=== PATIENT | female | born 1965 | race Caucasian/White ===

== ENCOUNTER 2017-07-26 15:08 | Emergency (ER) | payer OTHER ==
[~2017-07-26] VITALS: Ht 149.9 cm; Wt 78.0 kg
[2017-07-26 15:12] VITALS: TEMP 37.2; Ht 149.9 cm; Wt 78.0 kg
[2017-07-26] MEDS ORDERED: LISI-461 PO (16:04)
[2017-07-26] MEDS ORDERED: TRAM-10 PO (16:04)
--- NOTE | 2017-07-26 16:10 | EMERGENCY ROOM VISIT NOTE ---
ED Visit Note First contact with patient: 15:17 CHIEF COMPLAINT: Body Fluid exposure HPI: This 52-year-old female presents to the Emergency Department ambulatory for evaluation of a body fluid exposure which occurred at work just prior to arrival. 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 She was seen by [facility] and started on HIV postexposure prophylaxis already. The wound was cleansed. There is no active bleeding. They deny numbness, tingling, or loss of motion. Source patient is known. History of the source patient is not known at this time, however they did agree to testing. She has had hepatitis B vaccination. Her tetanus status is up-to- date. ALLERGIES: No known drug allergies MEDICATIONS: Zestril, Ultram PMH: No significant past medical history. SOCIAL HISTORY: The patient lives locally with her . Nonsmoker, admits to occasional alcohol use. Physical Exam: VITALS: Nursing notes reviewed and vitals are stable. GENERAL: This is a 52-year-old female, in no acute distress, well developed, well nourished. SKIN: There is a 1 cm non-gaping laceration just proximal to the fingernail of the right fifth finger. There is no active bleeding. Capillary refill is 2+. MUSCULOSKELETAL: Patient has full active range of motion of the finger. Normal strength. NEURO: Gross sensation is intact across the finger. ED COURSE: I examined the patient. Option of HIV, hepatitis C, and hepatitis B testing was discussed with the patient. The risks, benefits, purpose, and limitations of the tests were explained to the patient and all of their questions were answered. They elected to proceed. I did perform pretest counseling and the appropriate consent forms were signed. Patient was given information on prevention of exposure and transmission as well as hospital confidentiality. The patient's blood was drawn. The patient was already started on HIV postexposure prophylaxis and will continue this until the source patient has had testing completed. I did fill out paperwork for the patient. She will follow-up with [facility]. She verbalized understanding of my assessment and treatment plan and was discharged home in good condition. Medication reconciliation: I attest that I have personally reviewed the patient 's current medication list. Blood Pressure Screening: Patient was found to have a slightly elevated blood pressure due to circumstances. I do not believe that the patient requires hypertension monitoring. Impression: Body fluid exposure Plan: Follow up with employee health for further evaluation, treatment, and test results. Current/Historical Medications Scheduled Lisinopril (Zestril), 10 MG PO DAILY Scheduled PRN Tramadol (Ultram), 50 MG PO UD PRN for Pain Allergies Coded Allergies: No Known Allergies (Unverified , 07/26/17) Vital Signs Date Time Temp Pulse Resp B/P (MAP) Pulse Ox O2 Delivery O2 Flow Rate FiO2 07/26/17 16:22 74 16 142/78 98 07/26/17 15:12 37.2 82 16 155/95 98 Room Air Laboratory Results Test 07/26/17 15:51 Hepatitis B Surface Antigen NEG (NEG) Hepatitis B Surface Antibody POS Hepatitis C Antibody NEG (NEG) HIV (1&2) Ab and P24 Ag, 4th Gener NEG (NEG) Departure Information Dispostion Home / Self-Care Condition GOOD Patient Instructions My [facility] Additional Instructions Follow-up with employee health for further instructions. Take the Truvada once daily and the Isentress twice daily until you have the results of the HIV test. Allow the skin glue to follow-up on its own in the next few days. You may wash hands normally.
[2017-07-26 16:22] VITALS: BP 142/78; PULSE 74; O2SAT 98
[2017-07-26 17:31] LABS: HEP C IGG 13 YRS+OLDER_RFLX NEG (NEG)
== END 2017-07-26 16:23 | disposition home or self-care (01) ==
LOC: C.EDB 15:11 → C.EDD 16:23
DX: Z77.21 Contact with and (suspected) exposure to potentially hazardous body fluids (principal); Z20.9 Contact with and (suspected) exposure to unspecified communicable disease; Y92.148 Other place in prison as the place of occurrence of the external cause; Y99.0 Civilian activity done for income or pay

== ENCOUNTER → 2017-08-29 | Outpatient (CLI) | payer OTHER ==
[~2017-08-29] MED LIST: LISI-461 PO; TRAM-10 PO
[2017-08-29 14:58] LABS: BASO % 0.3 %; BASO ABS # 0.02 K/uL (0-0.2); EOS % 2.2 %; EOS ABS # 0.16 K/uL (0-0.5); HEMATOCRIT 39.9 % (37-47); HEMOGLOBIN 13.2 g/dL (12.0-16.0); IG# 0.02 K/uL (0.00-0.02); LYMPH % 22.4 %; LYMPH ABS # 1.61 K/uL (1.2-3.4); MEAN CELL VOLUME 96.1 fL (80-100); MEAN CORPUSCULAR HEMOGLOBIN 31.8 pg (25-34); MEAN CORPUSCULAR HGB CONC 33.1 g/dl (32-36); MEAN PLATELET VOLUME 9.6 fL (7.4-10.4); MONO % 7.4 %; MONO ABS # 0.53 K/uL (0.11-0.59); NEUT % 67.4 %; NEUT ABS # 4.85 K/uL (1.4-6.5); PLATELET COUNT 378 K/uL (130-400); RED CELL DISTRIBUTION WIDTH CV 13.3 % (11.5-14.5); RED CELL DISTRIBUTION WIDTH SD 46.4 fL (36.4-46.3); WHITE BLOOD COUNT 7.19 K/uL (4.8-10.8)
[2017-08-29 15:13] LABS: ALBUMIN 3.6 gm/dl (3.4-5.0); ALT/SGPT 25 U/L (12-78); AST/SGOT 13 U/L (15-37); BLOOD UREA NITROGEN 12 mg/dl (7-18); CALCIUM 9.1 mg/dl (8.5-10.1); CARBON DIOXIDE 25 mmol/L (21-32); CREATININE 0.73 mg/dl (0.60-1.20); GLUCOSE 89 mg/dl (70-99); POTASSIUM 4.2 mmol/L (3.5-5.1); SODIUM 139 mmol/L (136-145)
[2017-08-29 15:15] LABS: ALKALINE PHOSPHATASE 64 U/L (45-117); TOTAL PROTEIN 7.2 gm/dl (6.4-8.2)
== END | disposition home or self-care (01) ==
LOC: C.LAB1850 12:36
PROVIDERS: ATTEND Nurse Practitioner Family
DX: Z77.21 Contact with and (suspected) exposure to potentially hazardous body fluids (principal)

== ENCOUNTER → 2017-10-17 | Outpatient (CLI) | payer OTHER | END | disposition home or self-care (01) | LOC: C.LAB1850 09:01 | PROVIDERS: ATTEND Nurse Practitioner Family | DX: Z77.21 Contact with and (suspected) exposure to potentially hazardous body fluids (principal) ==

== ENCOUNTER 2018-03-11 11:41 | Emergency (ER) | payer OTHER ==
[~2018-03-11] VITALS: Ht 149.9 cm; Wt 73.7 kg
[2018-03-11 11:44] VITALS: TEMP 36.8; Ht 149.9 cm; Wt 73.7 kg
[2018-03-11] MEDS ORDERED: SODIUM CHLORIDE 0.9% 1000ML 1,000 ML IV ONE (12:00)
[2018-03-11] MEDS ORDERED: NALOXONE HCL 0.4 MG/1 ML VIAL/CARP IV PRN (12:00)
[2018-03-11] MEDS ORDERED: FEXO1TAB49 PO (12:15)
[2018-03-11 12:30] LABS: BASO % 0.2 %; BASO ABS # 0.02 K/uL (0-0.2); EOS % 1.1 %; EOS ABS # 0.09 K/uL (0-0.5); HEMATOCRIT 38.5 % (37-47); HEMOGLOBIN 12.6 g/dL (12.0-16.0); IG# 0.02 K/uL (0.00-0.02); LYMPH % 19.6 %; LYMPH ABS # 1.66 K/uL (1.2-3.4); MEAN CELL VOLUME 95.1 fL (80-100); MEAN CORPUSCULAR HEMOGLOBIN 31.1 pg (25-34); MEAN CORPUSCULAR HGB CONC 32.7 g/dl (32-36); MEAN PLATELET VOLUME 9.6 fL (7.4-10.4); MONO % 6.6 %; MONO ABS # 0.56 K/uL (0.11-0.59); NEUT % 72.3 %; NEUT ABS # 6.12 K/uL (1.4-6.5); PLATELET COUNT 362 K/uL (130-400); RED CELL DISTRIBUTION WIDTH CV 12.3 % (11.5-14.5); RED CELL DISTRIBUTION WIDTH SD 42.6 fL (36.4-46.3); WHITE BLOOD COUNT 8.47 K/uL (4.8-10.8)
--- NOTE | 2018-03-11 12:41 | EMERGENCY ROOM VISIT NOTE ---
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 states she started feeling funny around 1030. states now she feels dizzy and tongue feels weird and body feels shaky. patient received narcan by EMS. History of Present Illness The patient is a 52 year old female who presents to the Emergency Room with complaints of a possible chemical exposure at work. The patient was working at the [employer]. She walked into the [employer] to help a fellow employee. This occurred at approximately 1030 this morning. Within approximately 15 minutes, the patient began feeling numbness and tingling on her tongue. She felt very lightheaded. Her heart began to race. She immediately went to see medical. An ambulance was called. The patient received 1 dose of Narcan in route. She admits to feeling better now. She is still experiencing some numbness, tingling and dizziness. Review of Systems 10 system review performed and negative unless noted in HPI or below Past Medical/Surgical History Hypertension Social History Smoking Status: Former Smoker Occupation Status: employed Current/Historical Medications Scheduled Fexofenadine Hcl (Araseli Allergy), 180 MG PO DAILY Lisinopril (Zestril), 5 MG PO DIRECTED Tramadol (Ultram), 50 MG PO QAM Physical Exam Vital Signs Date Time Temp Pulse Resp B/P (MAP) Pulse Ox O2 Delivery O2 Flow Rate FiO2 03/11/18 15:15 84 15 158/95 97 03/11/18 14:20 86 18 145/90 97 Room Air 03/11/18 13:41 73 21 96 03/11/18 13:11 80 18 98 03/11/18 12:56 82 20 98 03/11/18 12:50 144/95 03/11/18 12:45 82 16 144/95 98 Room Air 03/11/18 12:41 85 20 100 03/11/18 12:26 25 03/11/18 12:11 81 16 99 03/11/18 11:58 80 03/11/18 11:48 170/91 03/11/18 11:44 36.8 87 20 170/91 97 Room Air Physical Exam VITALS: Vitals are noted on the nurse's note and reviewed by myself. Vital signs stable. GENERAL: 52-year-old female, in no acute distress, nondiaphoretic, well- developed well-nourished. SKIN: The skin was without rashes, erythema, edema, or bruising. HEAD: Normocephalic atraumatic. EYES: Pupils equal round and reactive to light and accommodation. Conjunctivae without injection, sclerae without icterus. Extraocular movements intact. MOUTH: Mucous membranes slightly dry NECK: Supple without nuchal rigidity. No lymphadenopathy. Cervical spine is nontender. No JVD. HEART: Regular rate and rhythm without murmurs gallops or rubs. LUNGS: Clear to auscultation bilaterally without wheezes, rales or rhonchi. No accessory muscle use. ABDOMEN: Positive bowel sounds x 4.Soft, nontender, without organomegaly. No guarding or rebound tenderness. MUSCULOSKELETAL: No muscle atrophy, erythema, or edema noted. Strength 5/5 throughout. NEURO: Patient was alert and oriented to person place and time. Normal sensation to touch. No focal neurological deficits. Medical Decision & Procedures Laboratory Results 03/11/18 12:17 Red Blood Count 4.05, Mean Corpuscular Volume 95.1, Mean Corpuscular Hemoglobin 31.1, Mean Corpuscular Hemoglobin Concent 32.7, Mean Platelet Volume 9.6, Neutrophils (%) (Auto) 72.3, Lymphocytes (%) (Auto) 19.6, Monocytes (%) (Auto) 6.6, Eosinophils (%) (Auto) 1.1, Basophils (%) (Auto) 0.2, Neutrophils # (Auto) 6.12, Lymphocytes # (Auto) 1.66, Monocytes # (Auto) 0.56, Eosinophils # (Auto) 0.09, Basophils # (Auto) 0.02 03/11/18 12:17 Test 03/11/18 11:50 03/11/18 12:17 Urine Color YELLOW Urine Appearance CLEAR (CLEAR) Urine pH 6.5 (4.5-7.5) Urine Specific [place] 1.007 (1.000-1.030) Urine Protein NEG (NEG) Urine Glucose (UA) NEG (NEG) Urine Ketones TRACE (NEG) Urine Occult Blood NEG (NEG) Urine Nitrite NEG (NEG) Urine Bilirubin NEG (NEG) Urine Urobilinogen NEG (NEG) Urine Leukocyte Esterase NEG (NEG) Urine Opiates Screen NEG (NEG) Urine Methadone, Qualitative NEG (NEG) Urine Barbiturates NEG (NEG) Urine Phencyclidine (PCP) Level NEG (NEG) Ur Amphetamine/Methamphetamine NEG (NEG) MDMA (Ecstasy) Screen NEG (NEG) Urine Benzodiazepines Screen NEG (NEG) Urine Cocaine Metabolite NEG (NEG) Urine Marijuana (THC) NEG (NEG) White Blood Count 8.47 K/uL (4.8-10.8) Red Blood Count 4.05 M/uL (4.2-5.4) Hemoglobin 12.6 g/dL (12.0-16.0) Hematocrit 38.5 % (37-47) Mean Corpuscular Volume 95.1 fL (80-100) Mean Corpuscular Hemoglobin 31.1 pg (25-34) Mean Corpuscular Hemoglobin Concent 32.7 g/dl (32-36) Platelet Count 362 K/uL (130-400) Mean Platelet Volume 9.6 fL (7.4-10.4) Neutrophils (%) (Auto) 72.3 % Lymphocytes (%) (Auto) 19.6 % Monocytes (%) (Auto) 6.6 % Eosinophils (%) (Auto) 1.1 % Basophils (%) (Auto) 0.2 % Neutrophils # (Auto) 6.12 K/uL (1.4-6.5) Lymphocytes # (Auto) 1.66 K/uL (1.2-3.4) Monocytes # (Auto) 0.56 K/uL (0.11-0.59) Eosinophils # (Auto) 0.09 K/uL (0-0.5) Basophils # (Auto) 0.02 K/uL (0-0.2) RDW Standard Deviation 42.6 fL (36.4-46.3) RDW Coefficient of Variation 12.3 % (11.5-14.5) Immature Granulocyte % (Auto) 0.2 % Immature Granulocyte # (Auto) 0.02 K/uL (0.00-0.02) Anion Gap 9.0 mmol/L (3-11) Est Creatinine Clear Calc Drug Dose 80.9 ml/min Estimated GFR () 112.4 Estimated GFR (Non- 97.0 BUN/Creatinine Ratio 11.2 (10-20) Calcium Level 8.2 mg/dl (8.5-10.1) Total Bilirubin 0.4 mg/dl (0.2-1) Aspartate Amino Transf (AST/SGOT) 13 U/L (15-37) Alanine Aminotransferase (ALT/SGPT) 20 U/L (12-78) Alkaline Phosphatase 52 U/L (45-117) Total Protein 6.8 gm/dl (6.4-8.2) Albumin 3.5 gm/dl (3.4-5.0) Globulin 3.3 gm/dl (2.5-4.0) Albumin/Globulin Ratio 1.1 (0.9-2) Medications Administered Medications (Trade) Dose Ordered Sig/Luc Route Start Time Stop Time Status Last Admin Dose Admin Sodium Chloride 1,000 ml @ 999 mls/hr Q1H1M ONCE IV 03/11/18 12:00 03/11/18 13:00 DC 03/11/18 12:00 999 MLS/HR ECG Per My Interpretation Indication: other Rate (beats per minute): 77 Rhythm: normal sinus Findings: nonspecific-ST abn ED Course The patient underwent a decontamination shower She was seen and examined She was put on a monitor, and an EKG was performed and reviewed by myself She was given a 1 L bolus Upon reevaluation, the patient was feeling better. We discussed her workup. She voiced understanding, was comfortable being discharged home. Discharge instructions were reviewed, and she was discharged in good condition Medical Decision Differential diagnosis: Chemical exposure including fentanyl, heroin, K2 and anthrax among others were entertained This patient is a 52-year-old female that presents to the emergency department with neurologic symptoms after possibly being exposed to a chemical at work as noted above. On exam, she was neurologically intact. Vital signs are stable. The patient's UDS is negative. I believe she is stable to be discharged home. She was encouraged to follow-up with her primary care physician. She will return to the ED with concerning symptoms. This chart was completed in part utilizing [employer] Speech Voice Recognition software. Attempts were made to minimize the grammatical errors, random word insertions, pronoun errors and incomplete sentences. Any formal questions or concerns about the content, text or information contained within the body of this dictation should be directly addressed to the provider for clarification. Impression Primary Impression: Hazardous chemical suspected exposure Departure Information Dispostion Home / Self-Care Condition GOOD Referrals No Doctor, Assigned (PCP) Patient Instructions My [facility] Additional Instructions Please get plenty of rest and stay well-hydrated. Increase fluids for the next 48 hours. Follow-up with your primary care physician Please do not hesitate to return to the emergency department with any new, worsening or concerning symptoms It was a pleasure participating in your care today
[2018-03-11 12:47] LABS: ALBUMIN 3.5 gm/dl (3.4-5.0); CALCIUM 8.2 mg/dl (8.5-10.1); CREATININE 0.72 mg/dl (0.60-1.20); POTASSIUM 3.9 mmol/L (3.5-5.1); TOTAL PROTEIN 6.8 gm/dl (6.4-8.2)
[2018-03-11 15:15] VITALS: BP 158/95; PULSE 84; O2SAT 97
== END 2018-03-11 15:15 | disposition home or self-care (01) ==
LOC: EDBD 11:41 → C.EDA 11:41
DX: Z77.098 Contact with and (suspected) exposure to other hazardous, chiefly nonmedicinal, chemicals (principal); Y92.149 Unspecified place in prison as the place of occurrence of the external cause; Y99.0 Civilian activity done for income or pay; Z87.891 Personal history of nicotine dependence; Z79.899 Other long term (current) drug therapy